=== PATIENT | female | born 1980 | race Caucasian/White ===

== ENCOUNTER 2020-03-29 16:06 | Emergency (ER) | payer BC ==
[~2020-03-29] VITALS: Ht 162.6 cm; Wt 131.5 kg
[2020-03-29 16:58] LABS: BASOPHILS % 0.2 % (0.0-1.0); EOSINOPHILS # (AUTO) 0.3 (0.0-0.4); EOSINOPHILS % 2.4 % (0.0-6.0); HEMATOCRIT 36.1 % (34.2-44.1); HEMOGLOBIN 11.3 g/dL (12.0-16.0); LYMPHOCYTES # (AUTO) 2.3 (1.0-3.2); LYMPHOCYTES % 21.3 % (18.0-39.1); MEAN CORPUSCULAR HEMOGLOBIN 30.1 pg (28-32); MEAN CORPUSCULAR HGB CONC 31.3 g/dL (31-35); MEAN CORPUSCULAR VOLUME 96.3 fL (81-99); MONOCYTES # (AUTO) 0.5 (0.2-0.8); MONOCYTES % 4.6 % (4.4-11.3); NEUTROPHILS # (AUTO) 7.7 (2.1-6.9); NEUTROPHILS % 71.1 % (38.7-80.0); PLATELET COUNT 226 x10e3/uL (140-360); RED BLOOD COUNT 3.75 x10e6/uL (3.6-5.1)
[2020-03-29 17:10] LABS: INR 0.91; PROTHROMBIN TIME 12.7 seconds (11.9-14.5)
[2020-03-29 17:11] LABS: PARTIAL THROMBOPLASTIN TIME 26.4 seconds (23.8-35.5)
--- OUTSIDE RECORDS SUMMARY | 2020-03-29 17:14 | XMS REPORT ---
Author Author NELL Verduzco Organization Unknown Address Unknown Phone Care Team Providers Care Technician Inventory Specialist Name Role Phone Kierra Verduzco PP Unavailable Reason for Referral No Reason for Referral was given. History of Present Illness No HPI available. Problems * Normal Routine History And Physical Adult (V70.0); (Active) * Sinusitis (473.9); (Active) * Depression (311); (Active) * Anxiety (Symptom) (300.00); (Active) * Allergic Rhinitis (477.9); (Active) Medication * Venlafaxine HCl ER 150 MG Oral Capsule Extended Release 24 Hour; TAKE 1 CAPSULE DAILY.; Start Date: 09/09/2013; End Date: (Active) * DULoxetine HCl 30 MG Oral Capsule Delayed Release Particles; 1 tab po qd x 2 weeks, then 1 po bid x 2 weeks.; Start Date: 10/11/2013; End Date: (Active) * BusPIRone HCl 10 MG Oral Tablet; TAKE 1 TABLET EVERY 12 HOURS DAILY.; Start Date: 10/11/2013; End Date: (Active) * Levocetirizine Dihydrochloride 5 MG Oral Tablet; 1 tab po qd; Start Date: 10/11/2013; End Date: (Active) * Fluticasone Propionate 50 MCG/ACT Nasal Suspension; USE 1 SPRAY IN EACH NOSTRIL TWICE A DAY; Start Date: 10/11/2013; End Date: (Active) * ALPRAZolam 0.5 MG Oral Tablet; TAKE 1 TABLET TWICE DAILY PRN; Start Date: 10/18/2013 (Active) Allergies and Adverse Reactions * No Known Drug Allergies (Active) Past Medical History * History of Depression (311); (Resolved) Family History * Paternal history of Congenital Heart Disease (Active) * Maternal history of Diabetes Mellitus (V18.0); (Active) Social History * Current Smoker (305.1); (Active) * Marital History - Currently (Active) * Occupation: Comments: housewife (Active) Advance Directives * No Advance Directives available. Encounters * AUDIT 10/18/2013
--- OUTSIDE RECORDS SUMMARY | 2020-03-29 17:14 | XMS REPORT ---
Author Author NELL HAMPTON KOFFI Organization Unknown Address Unknown Phone Care Team Providers Care Billiard Table Assembler Name Role Phone AKOSUA HAMPTONA PP Unavailable Reason for Referral No Reason for Referral was given. History of Present Illness No HPI available. Problems * Normal Routine History And Physical Adult (V70.0); (Active) * Sinusitis (473.9); (Active) * Depression (311); (Active) * Allergic Rhinitis (477.9); (Active) * Fatigue (780.79); (Active) * Anxiety (Symptom) (300.00); (Active) Medication * DULoxetine HCl 30 MG Oral Capsule [...] Start Date: 10/11/2013; End Date: (Active) * DULoxetine HCl 60 MG Oral Capsule Delayed Release Particles; TAKE 1 CAPSULE DAILY.; Start Date: 11/09/2013 (Active) * Cymbalta 60 MG Oral Capsule Delayed Release Particles; 1 tab po qd; Start Date: 11/09/2013 (Active) * Ranitidine HCl 150 MG Oral Tablet; TAKE 1 TABLET AT BEDTIME.; Start Date: 11/09/2013; End Date: (Active) Allergies and Adverse Reactions * No Known Drug Allergies (Active) Past Medical History * History of Depression (311); (Resolved) Procedures Procedure Procedure Date Date Completed Status Cholecystotomy - - Resolved Tonsillectomy - - Resolved Tubal Ligation - - Resolved Section - - Resolved Family History * Paternal history of Congenital Heart Disease (Active) * Maternal history of Diabetes Mellitus (V18.0); (Active) Social History * Current Smoker (305.1); (Active) * Marital History - Currently (Active) * Occupation: Comments: housewife (Active) Advance Directives * No Advance Directives available. Encounters * AUDIT 12/15/2013
--- OUTSIDE RECORDS SUMMARY | 2020-03-29 17:14 | XMS REPORT ---
Author Author NELL Verduzco Organization Unknown Address Unknown Phone Care Team Providers Care Air Transportation Provider Name Role Phone Dax Kierra PP Unavailable Reason for Referral No Reason for Referral was given. History of Present Illness No HPI available. Problems * Normal Routine History And Physical Adult (V70.0); (Active) * Sinusitis (473.9); (Active) * Anxiety (Symptom) (300.00); (Active) * Depression (311); (Active) Medication * ALPRAZolam 0.5 MG Oral Tablet; PRN (Active) * Cefdinir 300 MG Oral Capsule; TAKE 1 CAPSULE EVERY 12 HOURS DAILY.; Start Date: 09/09/2013; End Date: 09/19/2013 (Active) * PredniSONE 10 MG Oral Tablet; 1 tab po bid x 5d, then 1 tab po qd x 5d.; Start Date: 09/09/2013; End Date: (Active) * Venlafaxine HCl ER 150 MG Oral Capsule Extended Release 24 Hour; TAKE 1 CAPSULE DAILY.; Start Date: 09/09/2013; End Date: (Active) Allergies and Adverse Reactions * No Known Drug Allergies (Active) Past Medical History * History of Depression (311); (Resolved) Family History * Paternal history of Congenital Heart Disease (Active) * Maternal history of Diabetes Mellitus (V18.0); (Active) Social History * Current Smoker (305.1); (Active) Advance Directives * No Advance Directives available. Encounters * AUDIT 09/10/2013
--- OUTSIDE RECORDS SUMMARY | 2020-03-29 17:14 | XMS REPORT | Continuity of Care Document ---
Author Author [employer] Organization [employer] Address Unknown Phone Unavailable Care Team Providers Care Air Cargo Specialist Supervisor Name Role Phone [employer] Unavailable Un available Problems Problem Status Onset Date Classification Date Reported Comments Source Sinusitis Active 12/15/2013 [facility] Anxiety (Symptom) Active 12/15/2013 [facility] Depression Active 12/15/2013 [facility] Allergic Rhinitis Active 12/15/2013 [facility] Fatigue Active 12/15/2013 [facility] Medications Medication Details Route Status Patient Instructions Ordering Provider Order Date Source DULoxetine HCl 60 MG Oral Capsule Delaye d Release Particles ; Start Date: 11/09/2013 (Active) Active 11/09/2013 [facility] Cymbalta 60 MG Oral Capsule Delayed Release Particles ; Start Date: 11/09/2013 (Active) Active 11/09/2013 [facility] Ranitidine HCl 150 MG Oral Tablet ; Start Date: 11/09/2013; End Date: (Active) Active 11/09/2013 [facility] ALPRAZolam 0.5 MG Oral Tablet ; Start Date: 10/18/2013 (Active) Active 10/18/2013 [facility] DULoxetine HCl 30 MG Oral Capsule Delaye d Release Particles ; Start Date: 10/11/2013; End Date: 08/1899 (Active) Active 10/11/2013 [facility] Fluticasone Propionate 50 MCG/ACT Nasal Suspension ; Start Date: 10/11/2013; End Date: (Active) Active 10/11/2013 [facility] Levocetirizine Dihydrochloride 5 MG Oral Tablet ; Start Date: 10/11/2013; End Date: (Active) Active 10/11/2013 [facility] BusPIRone HCl 10 MG Oral Tablet ; Start Date: 10/11/2013; End Date: (Active) Active 10/11/2013 [facility] Cefdinir 300 MG Oral Capsule ; Start Date: 09/09/2013; End Date: 09/19/2013 (Active) Active 09/09/2013 [facility] PredniSONE 10 MG Oral Tablet ; Start Date: 09/09/2013; End Date: (Active) Active 09/09/2013 [facility] Venlafaxine HCl ER 150 MG Oral Capsule E xtended Release 24 Hour ; Start Date: 09/09/2013; End Date: 08/1899 (Active) Active 09/09/2013 [facility] ALPRAZolam 0.5 MG Oral Tablet (Active) Active [facility] Allergies, Adverse Reactions, Alerts Substance Category Reaction Severity Reaction type Status Date Reported Comments Source No Known Drug Allergies drug a llergy drug aller gy Active [facility] Immunizations No Data Provided for This Section Results No Data Provided for This Section Pathology Reports No Data Provided for This Section Diagnostic Reports No Data Provided for This Section Consultation Notes No Data Provided for This Section Discharge Summaries No Data Provided for This Section History and Physicals No Data Provided for This Section Vital Signs No Data Provided for This Section Encounters Location Location Details Encounter Type Encounter Number Reason For Visit Attending Provider ADM Date DC Date Status Source AUDIT [id number] 09/10/2013 09/10/2013 [facility] AUDIT [id number] 10/18/2013 10/18/2013 [facility] AUDIT [id number] 12/15/2013 12/15/2013 [facility] Procedures No Data Provided for This Section Assessment and Plan No Data Provided for This Section Plan of Care No Data Provided for This Section Social History Social History Date Source Current Smoker (305.1); (Active) Marital History - Currently (Active) 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 12/15/2013 [facility] Advance Directives Advance Dir ectives No Advance Directives available. 10/18/2013 [facility] Advance Directives Advance Dir ectives No Advance Directives available. 09/10/2013 [facility] Functional Status No Data Provided for This Section
[2020-03-29 17:16] LABS: PREGNANCY TEST, URINE NEGATIVE (NEGATIVE)
[2020-03-29 17:17] LABS: BILIRUBIN,URINE NEGATIVE (NEGATIVE); CLARITY,URINE CLEAR (CLEAR); COLOR,URINE YELLOW (YELLOW); KETONES,URINE NEGATIVE (NEGATIVE); LEUKOCYTE ESTERASE ,URINE TRACE (NEGATIVE); NITRITE,URINE NEGATIVE (NEGATIVE); PROTEIN,URINE DIPSTICK NEGATIVE (NEGATIVE); URINE UROBILINOGEN 0.2 mg/dL (0.2 - 1)
[2020-03-29 17:19] LABS: ALANINE AMINOTRANSFERASE 24 IU/L (0-55); ALBUMIN 3.1 g/dL (3.5-5.0); ALKALINE PHOSPHATASE 86 IU/L (40-150); ANION GAP 14.9 mmol/L (8-16); BLOOD UREA NITROGEN 7 mg/dL (7-26); BUN/CREATININE RATIO 10 (6-25); CARBON DIOXIDE 21 mmol/L (22-29); CHLORIDE 108 mmol/L (98-107); CREATINE KINASE 45 IU/L (29-168); CREATININE, SERUM 0.68 mg/dL (0.57-1.11); EST GLOMERULAR FILTRATION RATE > 60 ML/MIN (60-); GLUCOSE 113 mg/dL (74-118); POTASSIUM 3.9 mmol/L (3.5-5.1); SODIUM 140 mmol/L (136-145)
[2020-03-29 17:27] LABS: BACTERIA,URINE MODERATE /HPF; EPITHELIAL CELLS,URINE MODERATE /LPF; RBC,URINE 0-5 /HPF (0-5)
[2020-03-29 17:39] LABS: THYROID STIMULATING HORMONE 1.876 uIU/mL (0.350-4.940)
--- NOTE | 2020-03-29 17:47 | Diagnostic Imaging Report ---
EXAMINATION: CHEST SINGLE (PORTABLE) INDICATION: Lower extremity swelling. COMPARISON: None FINDINGS: TUBES and LINES: None. LUNGS: There is hazy opacification of the bilateral lung bases. PLEURA: No pleural effusion or pneumothorax. HEART AND MEDIASTINUM: The cardiomediastinal silhouette is unremarkable. BONES AND SOFT TISSUES: No acute osseous lesion. Soft tissues are unremarkable. UPPER ABDOMEN: No free air under the diaphragm. IMPRESSION: Hazy opacification of bilateral lung bases which may reflect underpenetration with superimposed bibasilar atelectasis. However, developing infection can have a similar appearance in the proper clinical context. Signed by: Mc Gutiérrez MD on 03/29/2020 5:44 PM
[2020-03-29] MEDS ORDERED: FUROSEMIDE INJ 10 MG/ML 2 ML VIAL IV ONE (18:00)
--- NOTE | 2020-03-29 18:10 | Emergency Department Note ---
History of Present Illnes History of Present Illness Chief Complaint: General Medicine Complaints History of Present Illness This is a 39 year old female c/o bilateral lower leg swelling x 3 days suddenly came on presents with +1/2 edema and pain to bilateral lower legs no redness noted denies hx of chf denies sob denies cp. Historian: Patient Arrival Mode: Car Softlines Supervisor Required: No Onset (how long ago): day(s) (3) Location: lower legs Quality: swelling Radiation: Reports non-radiation Severity: moderate Onset quality: gradual Timing of current episode: constant Progression: worsening Chronicity: new Context: Denies recent illness Relieving factors: none Exacerbating factors: none Associated symptoms: Reports denies other symptoms Treatments prior to arrival: none Past Medical/Family History Physician Review I have reviewed the patient's past medical and family history. Any updates have been documented here. Past Medical History Recent Fever: No Clinical Suspicion of Infectio: No New/Unexplained Change in Ment: No Past Medical History: Anxiety, Depression, Hyperlipedemia Past Surgical History: Cholecysctectomy, Tubal Ligation, Other Surgery: tonsillectomy Social History Smoking Cessation: Never Smoker Counseling Performed: No Alcohol Use: None Any Illegal Drug Use: No TB Exposure/Symptoms: No Physically hurt or threatened: No Family History Family history of heart diseas: No Other Any Pre-Existing Lines (PICC,: No Review of Systems Review of Systems Constitutional: Reports no symptoms EENTM: Reports no symptoms Cardiovascular: Reports as per HPI, Reports edema Respiratory: Reports no symptoms Gastrointestinal: Reports no symptoms Genitourinary: Reports no symptoms Musculoskeletal: Reports no symptoms Integumentary: Reports no symptoms Neurological: Reports no symptoms Psychological: Reports no symptoms Endocrine: Reports no symptoms Hematological/Lymphatic: Reports no symptoms Physical Exam Related Data Allergies: Coded Allergies: No Known Allergies (Unverified , 03/29/20) Triage Vital Signs Vital Signs Date Time Temp Pulse Resp B/P (MAP) Pulse Ox O2 Delivery O2 Flow Rate FiO2 03/29/20 16:31 99.5 95 18 128/81 100 Room Air Vital signs reviewed: Yes Physical Exam CONSTITUTIONAL Constitutional: Present well-developed, Present well-nourished HENT HENT: Present normocephalic, Present atraumatic, Present oropharynx clear/moist, Present nose normal HENT L/R: Present left ext ear normal, Present right ext ear normal EYES Eyes: Reports PERRL, Reports conjunctivae normal NECK Neck: Present ROM normal PULMONARY Pulmonary: Present effort normal, Present breath sounds normal CARDIOVASCULAR Cardiovascular: Present regular rhythm, Present heart sounds normal, Present capillary refill normal, Present normal rate, Present LLE edema (2+ bilat), Present RLE edema (2+ bilat) GASTROINTESTINAL Abdominal: Present soft, Present nontender, Present bowel sounds normal GENITOURINARY Genitourinary: Present exam deferred SKIN Skin: Present warm, Present dry MUSCULOSKELETAL Musculoskeletal: Present ROM normal, Present other (no calf tenderness, neg Spenser's, she does have tenderness bilat anterior tibia area) NEUROLOGICAL Neurological: Present alert, Present oriented x 3, Present no gross motor or sensory deficits PSYCHOLOGICAL Psychological: Present mood/affect normal, Present judgement normal Results Laboratory Result Diagram: 03/29/20 1644 03/29/20 1644 Laboratory Laboratory Tests Test 03/29/20 16:44 White Blood Count 10.83 x10e3/uL (4.8-10.8) Red Blood Count 3.75 x10e6/uL (3.6-5.1) Hemoglobin 11.3 g/dL (12.0-16.0) Hematocrit 36.1 % (34.2-44.1) Mean Corpuscular Volume 96.3 fL (81-99) Mean Corpuscular Hemoglobin 30.1 pg (28-32) Mean Corpuscular Hemoglobin Concent 31.3 g/dL (31-35) Red Cell Distribution Width 18.0 % (11.7-14.4) Platelet Count 226 x10e3/uL (140-360) Neutrophils (%) (Auto) 71.1 % (38.7-80.0) Lymphocytes (%) (Auto) 21.3 % (18.0-39.1) Monocytes (%) (Auto) 4.6 % (4.4-11.3) Eosinophils (%) (Auto) 2.4 % (0.0-6.0) Basophils (%) (Auto) 0.2 % (0.0-1.0) Neutrophils # (Auto) 7.7 (2.1-6.9) Lymphocytes # (Auto) 2.3 (1.0-3.2) Monocytes # (Auto) 0.5 (0.2-0.8) Eosinophils # (Auto) 0.3 (0.0-0.4) Basophils # (Auto) 0.0 (0.0-0.1) Absolute Immature Granulocyte (auto 0.04 x10e3/uL (0-0.1) Prothrombin Time 12.7 seconds (11.9-14.5) Prothromb Time International Ratio 0.91 Activated Partial Thromboplast Time 26.4 seconds (23.8-35.5) Urine Color Yellow (YELLOW) Urine Clarity Clear (CLEAR) Urine pH 6.5 (5 - 7) Urine Specific [place] 1.020 (1.010-1.025) Urine Protein Negative (NEGATIVE) Urine Glucose (UA) Negative (NEGATIVE) Urine Ketones Negative (NEGATIVE) Urine Blood Negative (NEGATIVE) Urine Nitrite Negative (NEGATIVE) Urine Bilirubin Negative (NEGATIVE) Urine Urobilinogen 0.2 mg/dL (0.2 - 1) Urine Leukocyte Esterase Trace (NEGATIVE) Urine RBC 0-5 /HPF (0-5) Urine WBC 6-10 /HPF (0-5) Urine Epithelial Cells Moderate /LPF (NONE) Urine Bacteria Moderate /HPF (NONE) Urine Test Negative (NEGATIVE) Sodium Level 140 mmol/L (136-145) Potassium Level 3.9 mmol/L (3.5-5.1) Chloride Level 108 mmol/L (98-107) Carbon Dioxide Level 21 mmol/L (22-29) Anion Gap 14.9 mmol/L (8-16) Blood Urea Nitrogen 7 mg/dL (7-26) Creatinine 0.68 mg/dL (0.57-1.11) Estimat Glomerular Filtration Rate > 60 ML/MIN (60-) BUN/Creatinine Ratio 10 (6-25) Glucose Level 113 mg/dL (74-118) Calcium Level 9.0 mg/dL (8.4-10.2) Total Bilirubin 0.2 mg/dL (0.2-1.2) Aspartate Amino Transf (AST/SGOT) 15 IU/L (5-34) Alanine Aminotransferase (ALT/SGPT) 24 IU/L (0-55) Alkaline Phosphatase 86 IU/L (40-150) Creatine Kinase 45 IU/L (29-168) Creatine Kinase MB 0.80 ng/mL (0-5.0) Troponin I 0.004 ng/mL (0-0.300) B-Type Natriuretic Peptide 10.1 pg/mL (0-100) Total Protein 6.3 g/dL (6.5-8.1) Albumin 3.1 g/dL (3.5-5.0) Globulin 3.2 g/dL (2.3-3.5) Albumin/Globulin Ratio 1.0 (0.8-2.0) Thyroid Stimulating Hormone (TSH) 1.876 uIU/mL (0.350-4.940) Lab results reviewed: Yes Imaging Imaging results reviewed: Yes Impressions EXAMINATION: CHEST SINGLE (PORTABLE) INDICATION: Lower extremity swelling. COMPARISON: None FINDINGS: TUBES and LINES: None. LUNGS: There is hazy opacification of the bilateral lung bases. PLEURA: No pleural effusion or pneumothorax. HEART AND MEDIASTINUM: The cardiomediastinal silhouette is unremarkable. BONES AND SOFT TISSUES: No acute osseous lesion. Soft tissues are unremarkable. UPPER ABDOMEN: No free air under the diaphragm. IMPRESSION: Hazy opacification of bilateral lung bases which may reflect underpenetration with superimposed bibasilar atelectasis. However, developing infection can have a similar appearance in the proper clinical context. Signed by: Mc Gutiérrez MD on 03/29/2020 5:44 PM Assessment & Plan Medical Decision Making MDM LE edema bilat - check cbc, chem's, ua, ecg, cardiacs, bnp, cxr - eval for renal insuff, liver dz with hypoalbuminemia, proteinuria, stemi/nstemi, chf, or just venous insufficiency Reassessment Reassessment dc home, Lasix 20 qday x 5, KCL 20 qday x 5, F/U PCP tomorrow for further w/u, work note/elevate legs, Macrobid 100 bid x 7 days Assessment & Plan Final Impression: (1) Lower extremity edema (2) UTI (urinary tract infection) Depart Disposition: HOME, SELF-CARE Last Vital Signs Date Time Temp Pulse Resp B/P (MAP) Pulse Ox O2 Delivery O2 Flow Rate FiO2 03/29/20 17:15 99.0 95 18 122/79 95 Room Air DANTE CARPIO MD Mar 29, 2020 18:10
== END 2020-03-29 18:50 | disposition home or self-care (01) ==
LOC: ER 17:11
DX: R60.9 Edema, unspecified (principal); M79.605 Pain in left leg; M79.604 Pain in right leg; N39.0 Urinary tract infection, site not specified; E78.5 Hyperlipidemia, unspecified; F41.9 Anxiety disorder, unspecified
CPT/HCPCS: 36415; 71045; 80053; 81001; 81025; 82550; 82553; 83880; 84443; 84484; 85025; 85610; 85730; 87086; 93005; 99284; J1940